=== PATIENT | female | born 1930 | race Asian ===

== ENCOUNTER 2017-05-29 12:39 | Emergency (ER) | payer BC, OTHER ==
[2017-05-29 12:53] VITALS: BP 116/59; PULSE 83; TEMP 98; BMI 26.2
--- NOTE | 2017-05-29 14:36 | PDOC ---
History of Present Illness - General Chief Complaint: Vaginal Bleeding Stated Complaint: VAGINAL BLEEDING Time Seen by Provider: 05/29/17 13:57 - History of Present Illness Initial Comments: 05/29/17 14:32 "Patient is an 87 yo female with h/o HTN, stroke, hyperlipidemia, DM who presents with possible vaginal bleeding for 2-3 weeks. Patients daughter states that she first started seeing red streaks in the pt's underpants a few weeks ago. They took her to the GI doctor thinking she was having a GI bleed. However , their GI doctor examined the pt and said that the bleeding was not coming from her rectum. The bleeding has been intermittent since then. However, yesterday, the daughter noticed blood in the toilet, prompting her to bring pt to ER. She denies seeing any stool mixed with the blood. Pt denies any pain at this time. Denies dysuria. Denies F/C. Patient denies diarrhea, constipation, hematochezia, Patient denies recent dysuria, frequency, urgency Allergies: aspirin PCP: Dr. Pena " Past History - Past Medical History Allergies/Adverse Reactions: Allergies Allergy/AdvReac Type Severity Reaction Status Date / Time aspirin Allergy Verified 05/29/17 12:50 Home Medications: Ambulatory Orders Clopidogrel Bisulfate [Plavix -] 75 mg PO DAILY #0 tablet 03/31/12 Metformin HCl [Glucophage -] 500 mg PO BIDAC #0 tablet 03/31/12 Sitagliptin Phosphate [Januvia] 100 mg PO DAILY 08/11/15 Amlodipine Besylate [Norvasc -] 5 mg PO DAILY tablet 08/15/15 Cefuroxime Axetil [Ceftin -] 250 mg PO BID tablet 08/15/15 Cephalexin [Keflex] 500 mg PO BID #14 capsule 05/29/17 CVA: Yes COPD: No Diabetes: Yes HTN: Yes - Suicide/Smoking/Psychosocial Hx Smoking Status: No Smoking History: Never smoked Have you smoked in the past 12 months: No Number of Cigarettes Smoked Daily: 0 Hx Alcohol Use: No Drug/Substance Use Hx: No Substance Use Type: None Review of Systems - Review of Systems Comments:: 05/29/17 14:34 "GENERAL/CONSTITUTIONAL: No fever or chills. No weakness. HEAD, EYES, EARS, NOSE AND THROAT: No change in vision. No ear pain or discharge. No sore throat. CARDIOVASCULAR: No chest pain or shortness of breath. RESPIRATORY: No cough, wheezing, or hemoptysis. GASTROINTESTINAL: No nausea, vomiting, diarrhea or constipation. GENITOURINARY: No dysuria, frequency, or change in urination. MUSCULOSKELETAL: No joint or muscle swelling or pain. No neck or back pain. SKIN: No rash NEUROLOGIC: No headache, vertigo, loss of consciousness, or change in strength/ sensation. ENDOCRINE: No increased thirst. No abnormal weight change. HEMATOLOGIC/LYMPHATIC: No anemia, easy bleeding, or history of blood clots. ALLERGIC/IMMUNOLOGIC: No hives or skin allergy." *Physical Exam - Vital Signs Last Vital Signs Temp Pulse Resp BP Pulse Ox 98.0 F 83 18 116/59 98 05/29/17 12:49 05/29/17 12:49 05/29/17 12:49 05/29/17 12:49 05/29/17 12:49 - Physical Exam Comments: 05/29/17 14:34 "GENERAL: Awake, alert, and fully oriented, in no acute distress HEAD: No signs of trauma EYES: PERRLA, EOMI, sclera anicteric, conjunctiva clear ENT: Auricles normal inspection, hearing grossly normal, nares patent, oropharynx clear without exudates. Moist mucosa NECK: Nontender, no stepoffs, Normal ROM, supple, no lymphadenopathy, JVD, or masses LUNGS: Breath sounds equal, clear to auscultation bilaterally. No wheezes, and no crackles HEART: Regular rate and rhythm, normal S1 and S2, no murmurs, rubs or gallops ABDOMEN: Soft, nontender, normoactive bowel sounds. No guarding, no rebound. No masses EXTREMITIES: Normal range of motion, no edema. No clubbing or cyanosis. No cords, erythema, or tenderness NEUROLOGICAL: Cranial nerves II through XII intact. 5/5 strength and sensation in all extremities, Normal speech, normal gait SKIN: Warm, Dry, normal turgor, no rashes or lesions noted. " ED Treatment Course - LABORATORY CBC & Chemistry Diagram: 05/29/17 14:33 05/29/17 14:33 - RADIOLOGY Radiology Studies Ordered: Category Date Time Status PELVIS(OTHER) US [US] Stat Ultrasound 05/29/17 14:14 Ordered Medical Decision Making - Medical Decision Making 05/29/17 14:34 87 F with possible vaginal bleeding x several weeks. Concerning for possible uterine or cervical malignancy. Pt has already had GI work up to r/o GI bleed. - Labs, coags, T&S - Pelvic US to evaluate uterine masses 05/29/17 19:21 Labs wnl UA consistent with UTI. Will cover with keflex Pending pelvic US. 05/29/17 19:27 Prelim US read without any abnormality. *DC/Admit/Observation/Transfer Diagnosis at time of Disposition: UTI (urinary tract infection) - Discharge Dispostion Disposition: HOME - Prescriptions Prescriptions: Cephalexin [Keflex] 500 mg PO BID #14 capsule - Referrals Referrals: Ryder Pena MD [Primary Care Provider] - Syd Quiroga MD [Staff Physician] - Moy Caraballo MD [Staff Physician] - - Patient Instructions Printed Discharge Instructions: DI for Hematuria Additional Instructions: We believe your mother has a urinary tract infection. Give her the antibiotics as prescribed to treat it. You must follow up with a urologist for further evaluation of the blood in her urine, as this can be a sign of cancer. Even though the ultrasound of the uterus was normal today, you should also follow up with a acid tester for evaluation of possible uterine cancer. If you experience more bleeding, fevers, pain, or any other concerning symptoms , return to the ER immediately. Otherwise follow up with your primary doctor within 1 week. - Post Discharge Activity - Attestations Physician Attestion: 05/29/17 19:31 I, Dr. Louis Whelan MD, attest that this document has been prepared under my direction and personally reviewed by me in its entirety. I further attest, that it accurately reflects all work, treatment, procedures and medical decision -making performed by me.
[2017-05-29 14:51] LABS: BASO % 0.6 % (0-2.0); EOS % 2.8 % (0-4.5); HEMATOCRIT 31.2 % (32.4-45.2); MCH 27.3 pg (25.7-33.7); MEAN CELL VOLUME 85.4 fl (80-96); MEAN PLT VOLUME 8.9 fl (7.5-11.1); MONO % 6.9 % (3.8-10.2); NEUT % 68.7 % (42.8-82.8); PLATELET COUNT 261 K/MM3 (134-434); RBC 3.65 M/mm3 (3.60-5.2); RDW 14.7 % (11.6-15.6); WHITE BLOOD COUNT 8.2 K/mm3 (4.0-10.0)
[2017-05-29 14:57] LABS: URINE APPEARANCE CLEAR; URINE BILIRUBIN NEGATIVE (NEGATIVE); URINE BLOOD 2+ (NEGATIVE); URINE COLOR LTYELLOW; URINE GLUCOSE (UA) 2+ (NEGATIVE); URINE KETONE NEGATIVE (NEGATIVE); URINE NITRITE NEGATIVE (NEGATIVE); URINE UROBILINOGEN NEGATIVE mg/dL (0.2-1.0)
[2017-05-29 15:06] LABS: INR 0.96 (0.82-1.09); PROTHROMBIN TIME (PATIENT) 10.8 SEC (9.98-11.88)
[2017-05-29 15:09] LABS: ACTIVATED PTT 29.8 SECONDS (26.9-34.4)
[2017-05-29 15:10] LABS: ALBUMIN 3.7 g/dl (3.4-5.0); ALK PHOS 90 U/L (45-117); ANION GAP 8 (8-16); BILIRUBIN,TOTAL 0.3 mg/dL (0.2-1.0); BLOOD UREA NITROGEN 54 mg/dL (7-18); CALCIUM 8.9 mg/dL (8.5-10.1); CHLORIDE 100 mmol/L (98-107); CO2 29 mmol/L (21-32); CREATININE 2.1 mg/dL (0.55-1.02); GLUCOSE,RANDOM 207 mg/dL (74-106); POTASSIUM 4.1 mmol/L (3.5-5.1); SGOT/AST 17 U/L (15-37); SGPT/ALT 22 U/L (12-78); SODIUM 137 mmol/L (136-145); TOT PROT 9.3 g/dl (6.4-8.2)
[2017-05-29 15:22] LABS: URINE LEUK ESTERASE 3+ (NEGATIVE); URINE PROTEIN 2+ (NEGATIVE)
[2017-05-29 15:35] LABS: EPI CELLS RARE /HPF (FEW); URINE HYALINE CAST 2 /lpf
[2017-05-29] MEDS ORDERED: CEPHALEXIN MONOHYDRATE 500 MG CAPSULE (UD) PO ONE (19:21)
[2017-05-29] MEDS ORDERED: CEPHALEXIN MONOHYDRATE 250 MG CAPSULE (FP) ONE (19:23)
== END 2017-05-29 19:39 | disposition home or self-care (01) ==
LOC: SUPCPDRO 12:39 → JER 12:39
DX: N39.0 Urinary tract infection, site not specified (principal); I10 Essential (primary) hypertension; E11.9 Type 2 diabetes mellitus without complications; Z79.84 Long term (current) use of oral hypoglycemic drugs; E78.00 Pure hypercholesterolemia, unspecified; Z86.73 Personal history of transient ischemic attack (TIA), and cerebral infarction without residual deficits
CPT/HCPCS: 36415; 76856-TC; 80053; 81003; 81015; 85025; 85610; 85730; 86850; 86900; 86901; 87086; 99283-25

== ENCOUNTER 2018-03-14 00:14 | Emergency (ER) | payer SELFPAY ==
--- NOTE | 2018-03-14 00:31 | PDOC ---
History of Present Illness - General Stated Complaint: DIFFICULTY BREATHING Time Seen by Provider: 03/14/18 00:30 - History of Present Illness Initial Comments: 03/14/18 00:38 The patient is an 87 year old Mandarin speaking female with a PMH of HTN and NIDDM BIBEMS c/o acute onset of difficulty breathing. As per EMS, patient was SpO2 90%, oral cyanosis @ presentation, s/p CPAP en route. Daughter @ bedside notes no h/o cough, fevers, shortness of breath immediately before onset of shortness of breath. No previous pulmonary or cardiac history. Immediately prior to symptom onset patient c/o headache and dizziness. ROS is unobtainable 2/2 to patient's clinical condition. Tachycardic (120's), SpO2 76% @ presentation, RR 40's Allergy: ASA As per EMR, patient evaluated in 05/2017 for vaginal bleed, UA c/w UTI, TVUS showed no pelvic masses. No previous evaluations for pulm/cardiac. Past History - Past Medical History Allergies/Adverse Reactions: Allergies Allergy/AdvReac Type Severity Reaction Status Date / Time aspirin Allergy Verified 03/14/18 00:58 Home Medications: Ambulatory Orders Clopidogrel Bisulfate [Plavix -] 75 mg PO DAILY #0 tablet 03/31/12 metFORMIN HCL [Glucophage -] 500 mg PO BIDAC #0 tablet 03/31/12 Sitagliptin Phosphate [Januvia] 100 mg PO DAILY 08/11/15 CVA: Yes COPD: No Diabetes: Yes HTN: Yes - Suicide/Smoking/Psychosocial Hx Smoking Status: No Smoking History: Never smoked Have you smoked in the past 12 months: No Number of Cigarettes Smoked Daily: 0 Hx Alcohol Use: No Drug/Substance Use Hx: No Substance Use Type: None Heart Score/ECG Review - ECG Impressions Comment:: 03/14/18 01:48 HR 124, 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 Tachycardic (120's), SpO2 76% on NC, RR 22. ED Adult Sepsis initiated. Frontal Dx: AK, Acute Respiratory Failure 2/2 to infectious including PNA, new onset CHF, less likely pneumothorax (B/L breath sounds). BIPAP Close monitoring. 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 03/14/18 01:45 Troponin [address] [facility] [place] for transfer and likely cardiac cath 03/14/18 01:50 Verbal consent from patient's daughter BNP CXR shows new RLL infiltrate not present on CXR dated 03/2016 Patient improved, HR 114, RR 22 03/14/18 03:[address] Dave, Interventional cardiology @ [facility] [place] - does not accept patient for cardiac cath, will accept to CCU. 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 [place] @ 0345 *DC/Admit/Observation/Transfer Diagnosis at time of Disposition: Myocardial disease - Discharge Dispostion Condition at time of disposition: Fair - Referrals - Patient Instructions - Post Discharge Activity
--- NOTE | 2018-03-14 00:46 | PDOC ---
Attending Attestation - Resident Resident Name: Zainab Barnhart - ED Attending Attestation I have performed the following: I have examined & evaluated the patient, The case was reviewed & discussed with the resident, I agree w/resident's findings & plan, Exceptions are as noted - HPI HPI: 03/14/18 00:45 87 yo female BIBA for resp distress,hypoxia,increased resp rate in 40's . This shortness of breath occurred suddenly according to EMS 03/14/18 00:46 - Physicial Exam PE: 03/14/18 00:46 petite 87 yo female p/w resp distress. head ncat eyes capri eomi lungs +rhochi cvs [id number] abd flat ext no edema neuro alert skin clammy,diaphoretic psych anxious - Medical Decision Making 03/14/18 00:49 resp distress plan ekg,cxr,cbc.comp,trop,bipap 03/14/18 01:34 cxr chf,cm 03/14/18 01:35 BIPAP settings IPAP 15, EPAP 5,rate 16 ,fio2= 100%
[2018-03-14 00:58] VITALS: BMI 26.2
[2018-03-14 01:29] LABS: BASO % 0.3 % (0-2.0); EOS % 2.1 % (0-4.5); HEMATOCRIT 29.1 % (32.4-45.2); HEMOGLOBIN 9.2 GM/dL (10.7-15.3); LYMPH % 25.3 % (8-40); MCH 28.6 pg (25.7-33.7); MCHC 31.7 g/dl (32.0-36.0); MEAN CELL VOLUME 90.4 fl (80-96); MONO % 4.9 % (3.8-10.2); NEUT % 67.4 % (42.8-82.8); PLATELET COUNT 289 K/MM3 (134-434); RBC 3.22 M/mm3 (3.60-5.2); RDW 15.5 % (11.6-15.6); WHITE BLOOD COUNT 11.3 K/mm3 (4.0-10.0)
[2018-03-14 01:59] LABS: INR 0.95 (0.83-1.09); PROTHROMBIN TIME (PATIENT) 11.2 SEC (9.7-13.0)
[2018-03-14 02:01] LABS: ACTIVATED PTT 25.4 SECONDS (25.2-36.5)
[2018-03-14 02:04] LABS: ALBUMIN 3.3 g/dl (3.4-5.0); ALK PHOS 78 U/L (45-117); ANION GAP 17 MMOL/L (8-16); BILIRUBIN,TOTAL 0.3 mg/dL (0.2-1); BLOOD UREA NITROGEN 52 mg/dL (7-18); CALCIUM 8.2 mg/dL (8.5-10.1); CHLORIDE 97 mmol/L (98-107); CO2 19 mmol/L (21-32); CREATININE 2.3 mg/dL (0.55-1.3); MAGNESIUM 2.5 mg/dL (1.8-2.4); N-TERMINAL BNP 25113.3 pg/ml (5-450); POTASSIUM 4.2 mmol/L (3.5-5.1); SGOT/AST 145 U/L (15-37); SGPT/ALT 116 U/L (13-61); SODIUM 133 mmol/L (136-145); TOT PROT 7.8 g/dl (6.4-8.2)
[2018-03-14] MEDS ORDERED: HEPARIN NA (PORCINE) 5,000 UNITS/ML 1ML VIAL IVPUSH PRN ×2 (02:07)
[2018-03-14] MEDS ORDERED: HEPARIN NA (PORCINE) 5,000 UNITS/ML 1ML VIAL ONE (02:10)
[2018-03-14] MEDS ORDERED: HEPARIN INFUSION - 25,000 UNITS/500 ML INFUS.BAG IVPB ONE (02:10)
[2018-03-14] MEDS ORDERED: HEPARIN SOD,PORK IN 0.45% NACL 25,000 UNIT/500 ML INFUS.BAG IVPB SCH (02:15)
[2018-03-14] MEDS ORDERED: FUROSEMIDE 40 MG/4 ML INJECTABLE VIAL IVPUSH ONE ×2 (02:44→03:01)
[2018-03-14] MEDS ORDERED: FUROSEMIDE 40 MG/4 ML INJECTABLE VIAL ONE ×2 (02:46→03:03)
[2018-03-14 03:10] LABS: GLUCOSE,RANDOM 393 mg/dL (74-106)
[2018-03-14 03:22] VITALS: BP 142/73; PULSE 116; TEMP 98.9
--- NOTE | 2018-03-14 16:27 | EKG ---
Test Reason : Blood Pressure : / mmHG Vent. Rate : 125 BPM Atrial Rate : 125 BPM P-R Int : 204 ms QRS Dur : 108 ms QT Int : 316 ms P-R-T Axes : 012 -20 131 degrees QTc Int : 456 ms POOR DATA QUALITY, INTERPRETATION MAY BE ADVERSELY AFFECTED Cannot assess rhythm due to artifact possibly sinus tachycardia POSSIBLE LEFT ATRIAL ENLARGEMENT ABNORMAL ECG WHEN COMPARED WITH ECG OF 11-AUG-2015 10:42, QUESTIONABLE CHANGE IN QRS DURATION CRITERIA FOR SEPTAL INFARCT ARE NO LONGER PRESENT Confirmed by MD Rachele, Dereck ([id number]) on 03/14/2018 4:26:40 PM Referred By: Confirmed By:Dereck Jeffrey MD
--- NOTE | 2018-03-15 12:48 | EKG ---
Test Reason : Blood Pressure : / mmHG Vent. Rate : 118 BPM Atrial Rate : 118 BPM P-R Int : 184 ms QRS Dur : 102 ms QT Int : 302 ms P-R-T Axes : 043 019 230 degrees QTc Int : 423 ms SINUS TACHYCARDIA POSSIBLE LEFT ATRIAL ENLARGEMENT ANTEROSEPTAL INFARCT , POSSIBLY ACUTE T WAVE ABNORMALITY, CONSIDER INFEROLATERAL ISCHEMIA ACUTE PA / STEMI ABNORMAL ECG WHEN COMPARED WITH ECG OF 14-MAR-2018 00:43, T WAVE INVERSION NOW EVIDENT IN INFERIOR LEADS Confirmed by SHREYA SUN, RAMONA ([id number]) on 03/15/2018 12:47:45 PM Referred By: Confirmed By:RAMONA CASH MD
== END 2018-03-14 02:30 | disposition short-term general hospital (02) ==
LOC: JER 00:14
PROC: 3E033GC Introduction of Other Therapeutic Substance into Peripheral Vein, Percutaneous Approach (ICD-10-PCS; principal; 2018-03-14)
PROC: 3E033GC Introduction of Other Therapeutic Substance into Peripheral Vein, Percutaneous Approach (ICD-10-PCS; 2018-03-14)
PROC: 3E033GC Introduction of Other Therapeutic Substance into Peripheral Vein, Percutaneous Approach (ICD-10-PCS; 2018-03-14)
DX: I51.5 Myocardial degeneration (principal); I10 Essential (primary) hypertension; E11.9 Type 2 diabetes mellitus without complications; Z79.84 Long term (current) use of oral hypoglycemic drugs
CPT/HCPCS: 36415; 71045-TC-FY; 80053; 82550; 82553; 83605; 83735; 83880; 84484; 85025; 85610; 85730; 87040; 93005; 93010; 99284-25; J1644